=== PATIENT | female | born 1955 | race African-American/Black ===

== ENCOUNTER → 2024-07-08 | Emergency (ER) | payer OTHER ==
[~2024-07-08] VITALS: Ht 160 cm; Wt 73.5 kg
[~2024-07-08] MED LIST: AVAPRO150 MG PO; CARAFATE1 GM PO; NEURONTIN800 MG PO; PROTONIX20 MG PO
== END | disposition home or self-care (01) ==
LOC: ER 16:07
DX: S61.222A Laceration with foreign body of right middle finger without damage to nail, initial encounter (principal); W26.0XXA Contact with knife, initial encounter; Y93.G1 Activity, food preparation and clean up; Y92.010 Kitchen of single-family (private) house as the place of occurrence of the external cause